=== PATIENT | male | born 1995 | race Caucasian/White ===

== ENCOUNTER 2016-12-21 23:09 | Emergency (ER) | payer SELFPAY ==
[~2016-12-21 23:09] MED LIST: ADDERALL10 MG PO; FLEXERIL-DPS10 MG PO; GLUTOSE 1537.5 GM PO; HUMALOG100 UNIT/2 SQ; LEVEMIR100 UNIT/1 SQ; NOVOLOG100 UNIT/1 SQ; NOVOLOG100 UNIT/2 SQ; TRESIBA FL100 UNIT/1 SQ
[2017-02-15] MEDS ORDERED: LANTUS100 UNITS/ SQ (11:42)
[2017-02-15] MEDS ORDERED: HUMALOG100 UNIT/1 SQ ×2 (11:42→11:43)
[2017-03-04] MEDS ORDERED: TYLENOL DPS325 MG PO (11:03)
== END 2016-12-22 01:32 | disposition home or self-care (01) ==
LOC: ER 23:09
DX: Z53.21 Procedure and treatment not carried out due to patient leaving prior to being seen by health care provider (principal)

== ENCOUNTER 2016-12-22 18:08 | Emergency (ER) | payer SELFPAY ==
--- NOTE | 2016-12-23 23:16 | ER ---
ADMIT: 12/22/2016 RM/LOC: ER [facility] MR#: [id number] 2620 [facility] [address] [place], [place] [address] MAURO AYALAMt Aguilar [address] [place] [address] Emergency Room Report SEX: M AGE: 21 : 1995 DATE: 12/22/2016 CHIEF COMPLAINT: Vomiting, does not feel right. HISTORY OF PRESENT ILLNESS: The patient is a 21-year-old male, who has a history of insulin-dependent diabetes. He has not been taking his long-acting insulin for the past 2 days. He has been having financial issues, unable to get it filled. He does still use his regular insulin but does not check his blood sugars that regularly. He actually presented to the ER last night, but saw there was a bit of a wait and did not want to stay around and left and then came back this evening. He states that he has had some difficulty keeping fluids down and feels nauseated. He otherwise denies any recent illness. No chest pain. No shortness of breath. Other than some abdominal cramping, he is not having any pain. He does have a history of having DKA several times in the past and this what he feels like would become DKA if he did not get it checked out. REVIEW OF SYSTEMS: Ten-point review of systems is done and otherwise negative except as in HPI. PAST MEDICAL HISTORY: Significant for insulin-dependent diabetes. MEDICATIONS: He takes regular insulin, is supposed to be on Tresiba also which he is not taking at this time. ALLERGIES: NONE. SOCIAL HISTORY: Smokes half pack a day. Denies drug or alcohol use. PHYSICAL EXAMINATION: See T-sheet for complete exam. LABORATORY DATA: CBC is normal. Chemistries show a CO2 of 19, glucose of 333, and his initial bedside glucose was 394. The gap that is provided on our laboratory results showed a gap of 22 and I calculated his gap at 18. He had small serum ketones. ED COURSE: With the patient's history, I am concerned of course of DKA. The labs confirmed he is in DKA, but it does appear to be a fairly mild case. I did give a liter of normal saline to the patient and suggested he stay, but at this point, patient is extremely reluctant to stay as he states he has had enough stays and cannot afford to stay. I told the patient that I strongly suggest that he stay as that would be the safest thing, but he is insistent upon leaving. I tried to do what is safest for him in that situation. I therefore did get the patient a second liter of normal saline in the Emergency Department. We gave him a long-acting shot of his Levemir and gave him some ADMIT: 12/22/2016 RM/LOC: ER [facility] MR#: [id number] [address] [address] ABDELRAHMAN AYALA [address] [place] [address] Emergency Room Report SEX: M AGE: 21 : 1995 subcu regular insulin also. As he is unable to afford his long-acting insulins, I did try to find a reasonable solution and we are going to put him on NPH. He is supposed to get that filled tomorrow with this prescription and start dosing tomorrow evening. He is instructed he needs to check his blood sugars regularly and uses sliding scale insulin as needed. He is told that at any point if he feels like his symptoms are getting worse, he needs to return to the ER. Even though I have strongly recommended the patient to stay at this time, we are reluctantly discharging him home with diagnoses of: 1. Insulin-dependent diabetes. 2. Diabetic ketoacidosis. 3. Medication noncompliance. 4. Leaving against advice. Rajesh Machuca MD/ vijay JOB #: [id number] CC: Evaristo Salguero MD, Attending Physician Ashwin Modi MD, Family Physician
[2017-02-15] MEDS ORDERED: LANTUS100 UNITS/ SQ (11:42)
[2017-02-15] MEDS ORDERED: HUMALOG100 UNIT/1 SQ ×2 (11:42→11:43)
[2017-03-04] MEDS ORDERED: TYLENOL DPS325 MG PO (11:03)
== END 2016-12-22 21:15 | disposition home or self-care (01) ==
LOC: ER 18:08
DX: E10.10 Type 1 diabetes mellitus with ketoacidosis without coma (principal); Z91.14 Patient's other noncompliance with medication regimen; F17.210 Nicotine dependence, cigarettes, uncomplicated

== ENCOUNTER 2016-12-30 22:24 | Emergency (ER) | payer OTHER ==
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
[2017-02-15] MEDS ORDERED: HUMALOG100 UNIT/1 SQ ×2 (11:42→11:43)
[2017-02-15] MEDS ORDERED: LANTUS100 UNITS/ SQ (11:42)
[2017-03-04] MEDS ORDERED: TYLENOL DPS325 MG PO (11:03)
== END 2016-12-30 22:55 | disposition home or self-care (01) ==
LOC: ER 22:24
DX: R51 Headache (principal); E11.9 Type 2 diabetes mellitus without complications; F17.210 Nicotine dependence, cigarettes, uncomplicated; Z79.4 Long term (current) use of insulin

== ENCOUNTER 2017-02-13 13:32 | Observation (INO) | payer SELFPAY ==
[~2017-02-13] VITALS: Ht 172.7 cm; Wt 63.9 kg
--- NOTE | 2017-02-14 10:23 | HP ---
ADMIT: 02/13/2017 RM/LOC: 428 [facility] MR#: [id number] [address] [facility] [address] [place] [phone] AYALAMAUROMt Aguilar [address] [place] [address] History and Physical SEX: M AGE: 21 : 1995 DATE OF SERVICE: CHIEF COMPLAINT: Not feeling well. HISTORY OF PRESENT ILLNESS: The patient is a 21-year-old gentleman, well known to me with history of type 1 diabetes. Reports he has not taken his insulin for couple days. He has been out in the sun all day yesterday. Started feeling nausea and emesis today. Just overall not feeling well. Presented to the emergency room. Prior to this, he states he has been in his usual state of health. No recent fevers, chills, nausea, or vomiting. He has been working long hours. He has been following for his diabetes over in [place] with George over there. Reports he was due to be seen today actually. Otherwise has not had DKA recently he states. No recent fevers or chills. Nausea is better than it usually is at this point in time. PAST MEDICAL HISTORY: Type 1 diabetes poorly controlled. SOCIAL HISTORY: Mother involved in his care in the past. Some estrangement there it sounds like. Works. Smokes occasionally. REVIEW OF SYSTEMS: As per HPI. Otherwise, reviewed and negative. FAMILY HISTORY: Noncontributory. MEDICATIONS: He is on Lantus 30 units a day and NovoLog 1:15 carb ratio with meals. PHYSICAL EXAMINATION: VITAL SIGNS: Blood pressure 111/57, heart rate is over 80, O2 saturation 98% on room air. GENERAL: He is alert and oriented x3. No acute distress. Pleasant. HEENT: Normocephalic, atraumatic. Pupils equal, round, and reactive to light and accommodation. No icterus. Very dry mucous membranes. NECK: No lymphadenopathy. Soft, supple. Trachea midline. LUNGS: Clear to auscultation bilaterally. No wheezes, rales, or rhonchi. HEART: Regular rate and rhythm. No murmurs, rubs, or gallops. ABDOMEN: Soft, nontender, nondistended. Bowel sounds present. EXTREMITIES: No cyanosis, clubbing, or edema. MUSCULOSKELETAL: 5/5 strength in all 4 extremities. Repositions himself in bed reasonably well. ADMIT: 02/13/2017 RM/LOC: 428 [facility] MR#: [id number] [address] [address] ABDELRAHMAN AYALA [address] [place] [address] History and Physical SEX: M AGE: 21 : 1995 LABORATORY AND X-RAY DATA: His CO2 is 17. His creatinine 1.1. Glucose 572. White count 10.5, platelets 254. Potassium 4.5. UA is negative. Ketone serum is small. ASSESSMENT/PLAN: Diabetic ketoacidosis. PLAN: At this point in time, I will give him IV fluids. We will give him his basal insulin here now which he had been missing. Sliding scale as well. Also give him a dose of IV insulin and fluids as well. Close monitoring of his blood sugars. Monitor him overnight. Let him eat. See how he does overnight. The patient is agreeable to plan. Ashwin Modi MD/ roxyl JOB #: [id number] CC: Ashwin Modi MD, Attending Physician Ashwin Modi MD, Family Physician
--- NOTE | 2017-02-15 02:42 | ER ---
ADMIT: 02/13/2017 RM/LOC: 428 [facility] MR#: [id number] [address] [address] ABDELRAHMAN AYALA [address] [place] [address] Emergency Room Report SEX: M AGE: 21 : 1995 DATE: 02/13/2017 TIME: 1332 hours. Please refer to my T-sheet for complete H and P. Briefly, the patient is a 21-year-old, comes in with crampy abdominal pain, vomiting, and weakness. He thinks he is in DKA. He states that he quit taking his insulin a couple days ago. He has been sporadic, he has had DKA multiple times. PHYSICAL EXAMINATION: VITAL SIGNS: Blood pressure 110/61, pulse 71, respirations 28, temp 96.5, and sat 100%. GENERAL: He is in no acute distress. HEENT: Very dry mucous membranes. ABDOMEN: Soft, really nontender. EMERGENCY DEPARTMENT COURSE: CBC was normal except white count 10.5. His serum pH 7.27, serum ketones were small. Chemistries normal except CO2 of 17, glucose 572, alkaline phosphatase 157. UA showed 4+ ketones, greater than 1000 glucose. We gave him a liter of normal saline bolus and Zofran. I talked to Dr. Modi, we will admit to the hospital and start DKA protocol. ASSESSMENT: 1. Diabetic ketoacidosis, mild at this point. 2. Noncompliant. PLAN: Admit to the hospital. Jace Hdz MD/ modl JOB #: [id number] CC: Ashwin Modi MD, Attending Physician Ashwin Modi MD, Family Physician
[2017-02-15] MEDS ORDERED: HUMALOG100 UNIT/1 SQ ×2 (11:42→11:43)
[2017-02-15] MEDS ORDERED: LANTUS100 UNITS/ SQ (11:42)
--- NOTE | 2017-02-17 19:49 | DS ---
ADMIT: 02/13/2017 RM/LOC: 428 [facility] MR#: [id number] [address] [place] [address] [address] MAURO AYALAMt Aguilar [address] [place] [address] Discharge Summary SEX: M AGE: 21 : 1995 ADMISSION DATE: 02/13/2017 DISCHARGE DATE: 02/14/2017 CONSULTATIONS: None. PROCEDURES: None. FINAL DIAGNOSES: DKA (diabetic ketoacidosis). REASON FOR ADMISSION: The patient is a 21-year-old gentleman, who was not taking his insulin at home. Type 1 diabetic. Admitted for his DKA presented to the ER with. HOSPITAL COURSE: The patient was admitted. Given IV fluids in large volume. Started back on his insulin. Did not require an insulin drip. His labs improved. He felt better at time of discharge. DISCHARGE INSTRUCTIONS: He will discharge to home. He will be on his home medications. He just needs to take them. He will follow up with Tree Gomez APRN, in [place], his diabetic provider. Ashwin Modi MD/ srini JOB #: [id number] CC: Ashwin Modi MD, Attending Physician Ashwin Modi MD, Family Physician
[2017-03-04] MEDS ORDERED: TYLENOL DPS325 MG PO (11:03)
== END 2017-02-14 16:45 | disposition home or self-care (01) ==
LOC: ER 13:32 → 4PCU 15:45
PROVIDERS: ADMIT Internal Medicine
DX: E13.10 Other specified diabetes mellitus with ketoacidosis without coma (principal); E10.8 Type 1 diabetes mellitus with unspecified complications; F17.200 Nicotine dependence, unspecified, uncomplicated

== ENCOUNTER 2017-02-28 14:51 | Inpatient (IN) | payer OTHER ==
[~2017-02-28] VITALS: Ht 172.7 cm; Wt 61.6 kg
[~2017-02-28 14:51] MED LIST changes: +HUMALOG100 UNIT/1 SQ; +LANTUS100 UNITS/ SQ
--- NOTE | 2017-02-28 15:40 | NUR ---
Rec'd referral from ER that pt was unable to afford diabetic meds. Per pt he used to be on a free drug program in [place] but lost his provider for that program. Pt states he does not have a [place] provider and cannot afford one. Encouraged pt to contact either [facility] or [facility], either place can work with him to get back on a free pharmaceutical program. Pt. would not open his eyes to visit with this worker, cinthya, difficult to understand.
[2017-03-04] MEDS ORDERED: TYLENOL DPS325 MG PO (11:03)
--- NOTE | 2017-03-04 12:53 | HP ---
ADMIT: 02/28/2017 RM/LOC: 407 [facility] MR#: [id number] [address] [facility] [address] [place] [address] ANTONI AYALA [address] [place] [address] History and Physical SEX: M AGE: 21 : 1995 DATE OF SERVICE: HISTORY OF PRESENT ILLNESS: Antoni is a 21-year-old, single, white male, previously followed by Dr. Modi, who was recently admitted 2 weeks ago for diabetic ketoacidosis. He is admitted to me through the ER on [facility] for diabetic ketoacidosis. To make long story short, he has not been taking any of his Lantus insulin. He has been using the sliding scale. He presented with abdominal pain, cramps, nausea and vomiting, hyperglycemia with blood sugar of over 550 with diabetic ketoacidosis. I was contacted for admission after he had received 2 L of normal saline for further evaluation, management, and treatment. On presentation, the patient is awake, alert, extremely irritable. He is using repeated profanity over Dr. Modi, who no longer treating him. He states that he has not had problems with compliance. His diabetes has been reasonably well controlled despite him not taking his medications. He states he is no longer on insulin pump and was using 30 units of Lantus along with sliding scale. He admits to nausea, vomiting, and abdominal cramps, but denies other concerns at this time. PAST MEDICAL HISTORY: Extremely well outlined over his numerous recent hospitalizations including hospitalizations in February, October, and June, 2 in May, last April in the last year. Past medical history includes undescended testicle as a child. ILLNESSES: Include diabetes mellitus type 1 with noncompliance and poor control with hemoglobin A1c. He is averaging over 12 with previous insulin pump, no longer on insulin pump. MEDICATIONS: Include Lantus, records indicate his most recent dose was 30 units daily along with NovoLog in a 1:15 carb ratio with meals. ALLERGIES: NONE KNOWN. SOCIAL HISTORY: Is that of a 21-year-old, single, white male. He works in [employer], smokes about a half a pack of cigarettes daily. Lives independently. FAMILY HISTORY: Noncontributory. REVIEW OF SYSTEMS: Remarkable for irritability, abdominal cramps, nausea, vomiting and frequent cussing at staff and myself. Reminder of review of systems negative. PHYSICAL EXAMINATION: VITAL SIGNS: Include temperature of 96.7, a pulse of 83, respiratory rate 16, blood pressure 102/56 with sat of 97% on room air. GENERAL: He is alert, lying on the side. No acute distress. He opens his eyes and interacts. HEENT: Pupils reactive. Membranes are moist. ADMIT: 02/28/2017 RM/LOC: 407 [facility] MR#: [id number] [address] [address] ANTONI AYALA [address] [place] [address] History and Physical SEX: M AGE: 21 : 1995 NECK: Without nodes or masses. HEART: Regular without murmur. LUNGS: Clear. ABDOMEN: Soft with some diffuse tenderness. He states palpation causes abdominal cramping. An episode of emesis is noted. GENITOURINARY AND RECTAL: Deferred. EXTREMITIES: No clubbing, cyanosis, edema or tracks. NEURO: Grossly normal including light touch, strength, and DTRs. LABORATORY DATA: Sodium 133, potassium 5.0, BUN 14, creatinine 0.8, with glucose 562, CO2 is 11. Serum ketones are small. White count of 15.7, hemoglobin 16.0, and platelet count of 300,000. UA shows glucosuria and 4+ ketones. Multiple prior hemoglobin A1c is noted averaging over 12. ASSESSMENT: 1. Diabetes mellitus type 1 with diabetic ketoacidosis and noncompliance. 2. Tobacco dependency. 3. Personality disorder. PLAN: He has received 2 L of IV normal saline. Place him back on his Lantus insulin with Accu-Chek monitoring sliding scale and resume diabetic diet. Pain medications and nausea and vomiting medications and fluids are ordered. Repeat labs and electrolytes have already been performed. We will repeat testing in the morning. Proceed with further evaluation and management based on course during the hospitalization. The patient has become very confrontational to staff as refused to wear telemetry. Importance of wearing tele was noted and discussed at length and essentially told the patient if he will not wear tele, we will discontinue his IV pain medications at this time. Negrito Gary MD/ vijay JOB #: [id number] CC: Negrito Gary MD, Attending Physician Negrito Gary MD, Family Physician
--- NOTE | 2017-03-14 15:17 | ER ---
ADMIT: 02/28/2017 RM/LOC: 407 [facility] MR#: [id number] [address] [address] ABDELRAHMAN AYALA [address] [place] [address] Emergency Room Report SEX: M AGE: 21 : 1995 DATE: 02/28/2017 ADDENDUM: CHIEF COMPLAINT: High blood sugars. Overall with this patient, he was admitted to Dr. Maki, for DKA. ROCHELLE Frederick / Evaristo Salguero MD / vijay JOB #: [id number] CC: Negrito Gary MD, Attending Physician Negrito Gary MD, Family Physician
--- NOTE | 2017-04-07 17:10 | DS ---
ADMIT: 02/28/2017 RM/LOC: 407 [facility] MR#: [id number] 2620 [facility] [address] [place] [phone] ANTONI AYALA [address] [place] [address] General Discharge Summary SEX: M AGE: 21 : 1995 ADMISSION DATE: 02/28/2017 DISCHARGE DATE: 03/03/2017 INDICATION FOR HOSPITALIZATION: Antoni is a 21-year-old, single, white male, previously followed by Dr. Modi, who was admitted 2 weeks ago for diabetic ketoacidosis. He was admitted to mt on [facility] for diabetic ketoacidosis after being noncompliant with his medications and not taking his insulin. He presented with abdominal pain, cramps, nausea, vomiting, and hyperglycemia with blood sugar of over by 550 with diabetic ketoacidosis through the ER. In the ER, he had been given 2 L of normal saline. He was admitted for further evaluation and management. At the time of admission, he is extremely irritable and noncompliant and was very argumentative with the staff. He states he is no longer using insulin pump and was using 30 units of Lantus along with sliding scale, but refused to use his Lantus. Please see his admission H and P for further details regarding his history of present illness, past medical history, physical exam, and assessment at the time of hospitalization. HOSPITAL COURSE: On admission, routine Accu-Chek monitoring, sliding scale insulin, IV fluids, electrolytes, and antiemetics were given. The patient was demanding of narcotics, but refused to wear routine telemetry. I discussed with him that he would not receive IV analgesics in the event he was noncompliant with telemetry and ultimately, he refused telemetry. A psychiatric consult was requested due to his recurrent admissions, repetitive diabetic ketoacidosis, and noncompliance. Social Work was consulted regarding his noncompliance, possible medical assistance with medications and medical followup, and he was admitted for further evaluation and management. The patient was started on a low-dose Lantus at 20 units, placed on 2400 calorie ADA diet, and Accu-Cheks along with NicoDerm patches on the in the evening. On the morning of the , vital signs were stable. He was afebrile. Blood sugars were in the 300s. Hemoglobin A1c was noted to be markedly elevated at 12.3. He was alert with no nausea or vomiting, but continued to have some abdominal cramping. He states the cramps were severe and wanted testing. Discussion regarding a possible CT was given and ultimately he refused telemetry and refused to do a CAT scan, and was refusing insulin administration and Accu-Chek monitoring. On March 02, he was seen by Dr. Hardwick, adjustments in fluid electrolytes were given and ultimately his IV was discontinued, and he was discharged home on the . FINAL DIAGNOSES: Include: 1. Diabetes mellitus type 1 with diabetic ketoacidosis and noncompliance with severe poor control. 2. Tobacco use disorder. 3. Dehydration, resolved. 4. Personality disorder, not otherwise specified. I strongly suspect borderline personality disorder. PROCEDURES: Include medical management of diabetic ketoacidosis and ADMIT: 02/28/2017 RM/LOC: 407 [facility] MR#: [id number] [address] [place] [phone] ANTONI AYALA [address] [place] [address] General Discharge Summary SEX: M AGE: 21 : 1995 dehydration with fluid and electrolyte administration. MEDICATIONS: Listed on his NOV. Please include a copy of his discharge med list. LAB/X-RAY DATA: On March 03; white count of 9.5, hemoglobin 13.1, platelet count of 213,000. On February 28; white count 15.7, hemoglobin 16 with a platelet count of 300,000. On February 28, UA shows 1000 mg/dL sugar with 4+ ketones. On March 03; sodium is 139, potassium 3.7, BUN 9, creatinine 0.9 with glucose 296. On February 28; sodium is 130, potassium 4.6, BUN of 12, creatinine 1.0 with glucose 552. Numerous sugars were monitored during hospitalization. Hemoglobin A1c on February 28 was 12.3. Chest x-ray shows mild peribronchial cuffing. Please see his hospital record for further details. Negrito Gary MD/ vijay JOB #: [id number] CC: Negrito Gary MD, Attending Physician Negrito Gary MD, Family Physician
== END 2017-03-03 08:00 | disposition home or self-care (01) | DRG 639 ==
LOC: ER 14:51 → 4PCU 17:00
PROVIDERS: ADMIT Family Medicine
DX: E10.10 Type 1 diabetes mellitus with ketoacidosis without coma (principal); E86.0 Dehydration; F60.3 Borderline personality disorder; T38.3X6A Underdosing of insulin and oral hypoglycemic [antidiabetic] drugs, initial encounter; F17.210 Nicotine dependence, cigarettes, uncomplicated; Z91.128 Patient's intentional underdosing of medication regimen for other reason